=== PATIENT | female | born 1945 | race Caucasian/White ===

== ENCOUNTER 2025-07-30 09:55 | Outpatient (CLI) | payer MEDICARE | END 2025-07-30 09:56 | disposition home or self-care (01) | LOC: CSHSLEEP 09:55 | PROVIDERS: ATTEND Nurse Practitioner Family | DX: G47.9 Sleep disorder, unspecified (principal); R53.83 Other fatigue; E66.9 Obesity, unspecified; Z68.30 Body mass index [BMI] 30.0-30.9, adult; K21.9 Gastro-esophageal reflux disease without esophagitis; I10 Essential (primary) hypertension | CPT/HCPCS: 95800 ==